=== PATIENT | female | born 1950 | race American Indian/Alaskan Native ===

== ENCOUNTER 2020-11-12 08:22 | Observation (INO) | payer MEDICARE ==
[2020-11-12] MEDS ORDERED: LIP THERAPY VASELINE TP PRN (08:30)
--- NOTE | 2020-11-12 08:44 | Emergency Department Report ---
<EUGENE LENNON - Last Filed: 11/12/20 18:47> ED CPR HPI - General Stated Complaint: CARDIAC ARREST Time Seen by Provider: 11/12/20 08:30 - Related Data Allergies Allergy/AdvReac Type Severity Reaction Status Date / Time Unable to Assess Allergy Unverified 11/12/20 09:25 ED Medical Decision Making - Lab Data Result diagrams: 11/12/20 09:19 11/12/20 09:19 ED Disposition Clinical Impression: Cardiac arrest, Metastatic cancer, Saddle pulmonary embolus Disposition: - OP ADMIT IP TO THIS HOSP Is pt being admited?: Yes Condition: Stable Time of Disposition: 18:49 <BRUNAJUAN ALBERTO - Last Filed: 11/15/20 10:14> ED CPR HPI - General Source: EMS Limitations: Other (Cardiac arrest) - History of Present Illness Initial Comments: Chief complaint: Cardiac arrest, syncope HPI: This is a 70-year-old female with history of stage IV lung cancer who presents via EMS after syncope respiratory failure. When EMS arrived, patient had agonal respirations. Patient's condition quickly progressed to cardiac arrest. Initial rhythm unknown. Patient received epinephrine 2 doses and naloxone. Per EMS, first dose of epinephrine given at 0755. ROSC was achieved. After several minutes during transportation, pulse was unobtainable. Patient received a third dose of epinephrine and epinephrine infusion. Chest compressions were being performed upon patient's arrival. Daughter provided additional information upon arrival. Her mother was diagnosed with metastatic stage IV lung cancer 2 months ago. Orthopedic surgeon diagnosed pathological vertebral fracture which prompted further evaluation. She is taking oral chemotherapy. She has "tumors all over her body" including skull. She has multiple pathologic fractures in her spine and pelvis. Patient's PCP is Dr. Adonis Hannah. Patient's oncologist is Dr. Armando Brice. She underwent genetic tumor modeling to determine care plan. She underwent echocardiogram and EKG prior to cancer treatment. EKG and echocardiogram were unremarkable according to daughter's history. Patient was in her normal state of health yesterday evening and this morning according to daughter. She did not report any symptoms to her daughter. She did not appear ill. Patient is retired. 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 Mrs. Hernandez has 5 children. She has 18 grandchildren. MD Complaint: found unresponsive, stopped breathing Place: home Bystander CPR Performed: No Shock Advised: No Initial Findings in the Field: unresponsive, agonal ROSC in the Field: Yes (then pulse subsequently unobtainable) Associated Symptoms: shortness of breath, other (Syncope) Treatments Prior to Arrival: intubation (Intubation with ETT), chest compressions, epinephrine mgs # (2 doses of epinephrine), other (1 dose of naloxone) ED Review of Systems ROS: Stated complaint: CARDIAC ARREST Other details as noted in HPI Comment: Unobtainable due to pts medical conditions (Critical condition, patient is unresponsive) ED Past Medical Hx - Past Medical History Previous Medical History?: Yes Additional medical history: stage IV lung cancer - Surgical History Past Surgical History?: Yes Additional Surgical History: Hysterectomy - Family History Family history: vascular disease (Cardiovascular disease aunt) - Social History Smoking Status: Never Smoker Substance Use Type: None ED Physical Exam - General Limitations: Altered Mental Status General appearance: other (No movement of extremities, respiratory effort observed) - Head Head exam: Present: atraumatic, normocephalic - Eye Pupils: Present: other (Sluggish pupils 6 mm slightly reactive) - ENT ENT exam: Present: mucous membranes moist - Neck Neck exam: Present: normal inspection, full ROM, other (JVD at 45 degrees) - Respiratory Respiratory exam: Present: other (Equal breath sounds, no breath sounds heard at the epigastrium). Absent: wheezes, rales, rhonchi - Cardiovascular Cardiovascular Exam: Present: regular rate, normal rhythm, normal heart sounds - GI/Abdominal GI/Abdominal exam: Present: soft. Absent: distended, tenderness, guarding, rebound - Extremities Exam Extremities exam: Present: other (No deformity no edema) - Neurological Exam Neurological exam: Present: altered, other (Unresponsive, no localization of pain) - Psychiatric Psychiatric exam: Present: other (Nonverbal no response to pain) - Skin Skin exam: Present: warm, intact, pallor ED Course Vital Signs 11/12/20 11/12/20 11/12/20 08:33 09:33 09:37 Temperature 97.8 F Pulse Rate 101 H 86 Respiratory 25 H 25 H Rate Blood Pressure 110/58 Blood Pressure 66/37 [Left] O2 Sat by Pulse 100 100 Oximetry 11/12/20 11/12/20 11/12/20 09:40 09:46 09:50 Temperature Pulse Rate 88 90 94 H Respiratory 27 H 22 26 H Rate Blood Pressure 62/37 69/42 87/52 Blood Pressure [Left] O2 Sat by Pulse 100 Oximetry 11/12/20 11/12/20 11/12/20 09:56 10:00 10:06 Temperature Pulse Rate 101 H 111 H 112 H Respiratory 25 H 21 24 Rate Blood Pressure 99/53 108/59 125/63 Blood Pressure [Left] O2 Sat by Pulse 100 100 100 Oximetry 11/12/20 11/12/20 11/12/20 10:10 10:15 10:30 Temperature Pulse Rate 113 H 109 H 100 H Respiratory 24 25 H 24 Rate Blood Pressure 108/52 103/46 87/62 Blood Pressure [Left] O2 Sat by Pulse 97 100 97 Oximetry 11/12/20 11/12/20 11/12/20 10:45 11:00 11:15 Temperature Pulse Rate 90 103 H 101 H Respiratory 25 H 27 H 26 H Rate Blood Pressure 90/30 107/44 100/53 Blood Pressure [Left] O2 Sat by Pulse 100 100 Oximetry 11/12/20 11/12/20 11/12/20 11:30 11:45 12:00 Temperature Pulse Rate 101 H 104 H 102 H Respiratory 28 H 28 H 24 Rate Blood Pressure 95/38 103/48 106/52 Blood Pressure [Left] O2 Sat by Pulse 100 100 Oximetry 11/12/20 11/12/20 11/12/20 12:15 12:30 12:46 Temperature Pulse Rate 84 89 89 Respiratory 42 H 25 H 21 Rate Blood Pressure 105/42 102/40 103/53 Blood Pressure [Left] O2 Sat by Pulse 100 100 100 Oximetry 11/12/20 11/12/20 11/12/20 12:50 13:00 13:15 Temperature Pulse Rate 83 102 H 82 Respiratory 32 H 25 H Rate Blood Pressure 76/55 97/55 Blood Pressure [Left] O2 Sat by Pulse 100 100 100 Oximetry 11/12/20 11/12/20 11/12/20 13:31 14:11 14:15 Temperature Pulse Rate 92 H 101 H 102 H Respiratory 28 H 21 28 H Rate Blood Pressure 91/68 91/68 150/86 Blood Pressure [Left] O2 Sat by Pulse 100 99 100 Oximetry 11/12/20 11/12/20 11/12/20 14:35 15:45 15:50 Temperature Pulse Rate 107 H 141 H 134 H Respiratory 25 H 33 H 28 H Rate Blood Pressure 122/66 194/110 175/98 Blood Pressure [Left] O2 Sat by Pulse 100 80 L 80 L Oximetry 11/12/20 11/12/20 11/12/20 15:55 16:00 16:05 Temperature Pulse Rate 132 H 129 H 123 H Respiratory 34 H 31 H 38 H Rate Blood Pressure 168/93 155/88 162/84 Blood Pressure [Left] O2 Sat by Pulse 79 L 77 L 73 L Oximetry 11/12/20 11/12/20 11/12/20 16:10 16:15 16:21 Temperature Pulse Rate 124 H 121 H 120 H Respiratory 38 H 32 H 29 H Rate Blood Pressure 168/81 115/77 124/73 Blood Pressure [Left] O2 Sat by Pulse 75 L 81 L 86 Oximetry 11/12/20 11/12/20 11/12/20 16:25 16:30 16:35 Temperature Pulse Rate 116 H 103 H 101 H Respiratory 37 H 36 H 30 H Rate Blood Pressure 109/61 92/37 71/42 Blood Pressure [Left] O2 Sat by Pulse 77 L 82 L Oximetry 11/12/20 11/12/20 11/12/20 16:41 16:45 16:51 Temperature Pulse Rate 102 H 88 88 Respiratory 38 H 34 H 26 H Rate Blood Pressure 67/39 61/38 65/34 Blood Pressure [Left] O2 Sat by Pulse 72 L 62 L 73 L Oximetry 11/12/20 11/12/20 11/12/20 16:55 17:01 17:05 Temperature Pulse Rate 93 H 85 85 Respiratory 27 H 26 H 25 H Rate Blood Pressure 62/38 61/38 69/37 Blood Pressure [Left] O2 Sat by Pulse 29 L 73 L 72 L Oximetry 11/12/20 11/12/20 11/12/20 17:10 17:15 17:20 Temperature Pulse Rate 90 84 88 Respiratory 26 H 28 H 25 H Rate Blood Pressure 66/36 57/36 64/37 Blood Pressure [Left] O2 Sat by Pulse 66 L 73 L 73 L Oximetry 11/12/20 11/12/20 11/12/20 17:25 17:31 17:35 Temperature Pulse Rate 84 91 H 86 Respiratory 26 H 26 H 25 H Rate Blood Pressure 68/33 52/29 63/38 Blood Pressure [Left] O2 Sat by Pulse 71 L 80 L Oximetry 11/12/20 11/12/20 11/12/20 17:41 17:45 17:50 Temperature Pulse Rate 94 H 91 H 93 H Respiratory 27 H 27 H 26 H Rate Blood Pressure 69/41 71/42 68/43 Blood Pressure [Left] O2 Sat by Pulse 73 L 72 L 77 L Oximetry 11/12/20 11/12/20 11/12/20 17:55 18:00 18:05 Temperature Pulse Rate 91 H 95 H 98 H Respiratory 27 H 27 H 27 H Rate Blood Pressure 69/36 78/41 72/46 Blood Pressure [Left] O2 Sat by Pulse 73 L 78 L Oximetry 11/12/20 11/12/20 11/12/20 18:11 18:15 18:21 Temperature Pulse Rate 100 H 101 H 100 H Respiratory 27 H 28 H 27 H Rate Blood Pressure 70/44 70/47 79/45 Blood Pressure [Left] O2 Sat by Pulse 75 L 75 L 75 L Oximetry 11/12/20 11/12/20 11/12/20 18:25 18:31 18:35 Temperature Pulse Rate 101 H 102 H 103 H Respiratory 28 H 28 H 24 Rate Blood Pressure 76/45 81/49 78/48 Blood Pressure [Left] O2 Sat by Pulse 76 L 74 L 76 L Oximetry 11/12/20 11/12/20 11/12/20 18:41 18:45 18:51 Temperature Pulse Rate 100 H 100 H 100 H Respiratory 25 H 27 H 27 H Rate Blood Pressure 75/47 70/41 78/43 Blood Pressure [Left] O2 Sat by Pulse 76 L 81 L 81 L Oximetry 11/12/20 11/12/20 11/12/20 18:55 19:01 19:05 Temperature Pulse Rate 98 H 103 H 101 H Respiratory 33 H 27 H 26 H Rate Blood Pressure 73/44 73/46 75/47 Blood Pressure [Left] O2 Sat by Pulse 86 79 L 77 L Oximetry 11/12/20 11/12/20 11/12/20 19:10 19:15 19:21 Temperature Pulse Rate 100 H 101 H 100 H Respiratory 20 26 H 26 H Rate Blood Pressure 70/45 77/45 73/44 Blood Pressure [Left] O2 Sat by Pulse 82 L 76 L 80 L Oximetry 07/11/12/20 11/12/20 19:25 19:31 19:35 Temperature Pulse Rate 100 H 99 H 99 H Respiratory 26 H 26 H 27 H Rate Blood Pressure 67/44 72/47 69/43 Blood Pressure [Left] O2 Sat by Pulse 76 L 75 L 77 L Oximetry 11/12/20 11/12/20 11/12/20 19:40 21:11 21:25 Temperature Pulse Rate 97 H Respiratory 26 H 11 L 15 Rate Blood Pressure 70/44 Blood Pressure [Left] O2 Sat by Pulse 84 Oximetry - Reevaluation(s) Reevaluation #1: 11/12/20 10:20 I spoke with family. 2 daughters came to the emergency department. Daughters informed me that mother did not discuss end-of-life since cancer diagnosis is new. I brought family to the bedside. Both daughters gave verbal informed consent for CVL insertion. Reevaluation #2: 11/12/20 11:01 I updated daughter. She stated that patient's 3 additional children are amelia irvas from [place] to be at her bedside. Reevaluation #3: 11/12/20 12:43 I reassessed patient. Patient has generalized jerking. Weak eyelid reflex. Pupils are nonreactive and equal left 4 mm, right 6 mm. Dried corneas. I have ordered Ativan and Keppra. Patient's blood pressure 52/45. I have asked nurse to start Levophed through CVL. Reevaluation #4: 11/12/20 14:58 I had extensive discussion with 3 daughters and son. Family has decided to withdraw care. We will support the patient with mechanical ventilation and vasopressor therapy until all family members arrive. Reevaluation #5: 11/12/20 15:33 All relatives have arrived. I have asked nurse to stop vasopressor therapy. I have asked respiratory therapist to remove ETT and stop mechanical ventilation. - Consultations Consultation #1: 11/12/20 15:51 I assisted respiratory therapist with removing ETT. - ABG Interpretation Ph: 7.26 PCO2: 43 PO2: 423 Interpretation: respiratory acidosis - Central Line Placement Right IJ Consent Obtained: verbal consent Time Out Performed: Yes Patient Placed on Monitor/Pulse Ox: Yes MD Prep: mask, gown, gloves, other (Maximal five-point barrier precautions cap Drape gown mask gloves) Central Line Prep: sterile drapes applied Ultrasound Used for Placement: Yes Central Line Lumen Inserted: triple Reason for Insertion: Emergency Venous Access Bloods Obtained for Lab: No Central Line Position: sutured in place with nyl Dressing Applied: Tegaderm Post Procedure X-Ray: tip of catheter in good p Patient Tolerated Procedure: well ED Medical Decision Making - Lab Data Result diagrams: 11/12/20 09:19 11/12/20 09:19 - EKG Data -: EKG Interpreted by Wi EKG shows normal: sinus rhythm, axis Rate: tachycardia - EKG Data 11/12/20 10:35 EKG obtained 829 EKG interpreted by me Sinus tachycardia rate 100 bpm normal axis normal QTC prolonged IA - Radiology Data Radiology results: report reviewed Comment(s) Study Comments [address] [address] XRay Report Signed Patient: RUDY VELAZQUEZ MR#: [id number] : 1950 Acct:[id number] Age/Sex: 70 / F ADM Date: 11/12/20 Loc: ED Attending Dr: Ordering Physician: Juan Alberto Abdullahi MD Date of Service: 11/12/20 Procedure(s): XR chest 1V ap Accession Number(s): [id number] cc: Juan Alberto Abdullahi MD Fluoro Time In Minutes: CHEST 1 VIEW 11/12/2020 10:00 AM INDICATION / CLINICAL INFORMATION: Right internal jugular vein CVL placement. COMPARISON: 11/12/2020 9:28 AM same day FINDINGS: SUPPORT DEVICES: New right IJ CVL projects over SVC. ET tube again projects in expected position HEART / MEDIASTINUM: No significant abnormality. LUNGS / PLEURA: No significant pulmonary or pleural abnormality. No pneumothorax. ADDITIONAL FINDINGS: No significant additional findings. IMPRESSION: 1. No acute findings. Signer Name: Devin Castillo MD Signed: 11/12/2020 11:11 AM Workstation Name: [id number] Transcribed By: TL Dictated By: Devin Castillo MD Electronically Authenticated By: Devin Castillo MD Signed Date/Time: 11/12/20 1111 DD/ 1110 TD/TT: [address] [address] XRay Report Signed Patient: RUDY VELAZQUEZ MR#: [id number] : 1950 Acct:[id number] Age/Sex: 70 / F ADM Date: 11/12/20 Loc: ED Attending Dr: Ordering Physician: Juan Alberto Abdullahi MD Date of Service: 11/12/20 Procedure(s): XR chest 1V ap Accession Number(s): [id number] cc: Juan Alberto Abdullahi MD Fluoro Time In Minutes: XR chest 1V ap INDICATION / CLINICAL INFORMATION: ETT placement. COMPARISON: None FINDINGS: SUPPORT DEVICES: Endotracheal tube projects in the midtrachea. HEART /PULMONARY VASCULATURE: No significant abnormality. LUNGS / PLEURA: No focal airspace consolidation or effusion. No pneumothorax. ADDITIONAL FINDINGS: No significant additional findings. IMPRESSION: Satisfactory position of endotracheal tube. No definite acute chest process. Signer Name: Paulino Burns MD Signed: 11/12/2020 9:40 AM Workstation Name: [id number] Transcribed By: JS Dictated By: PAULINO BURNS MD Electronically Authenticated By: PAULINO BURNS MD Signed Date/Time: 11/12/20939 DD/ 7 TD/TT: Other Patient ID My Comment(s) Study Comments [facility] [address] [place] [address] Cat Scan Report Signed Patient: RUDY VELAZQUEZ MR#: [id number] : 1950 Acct:[id number] Age/Sex: 70 / F ADM Date: 11/12/20 Loc: ED Attending Dr: Ordering Physician: Juan Alberto Abdullahi MD Date of Service: 11/12/20 Procedure(s): CT abdomen pelvis w con Accession Number(s): [id number] cc: Juan Alberto Abdullahi MD CTA CHEST WITH CONTRAST INDICATION : syncope shortness of breath cardiac arrest cancer OMNI 350 60ML GFR 41. TECHNIQUE: Axial imaging performed through the chest, with contrast bolus timing set to maximize opacification of the pulmonary arteries. Sagittal and coronal reformatted images. 3-plane MIP reformatted images were obtained. All CT scans at this location are performed using CT dose reduction for ALARA by means of automated exposure control. 60 mL of intravenous contrast administered. COMPARISON: AP chest performed earlier today FINDINGS: Bolus: Contrast bolus timing is adequate. PTE: A moderate to large saddle pulmonary embolus is identified which extends to the first order branches of the left lower lobe. Mediastinum: Heart and great vessels appear normal. No pathologic mediastinal adenopathy. Lungs: A large left anterior pneumothorax is identified estimated at 50%. There is minor bibasilar atelectatic changes, left greater than right. No pleural effusion, large consolidation or mass. Bones: Multiple bilateral anterior rib fractures are identified at levels 3-7 bilaterally. Expansile lytic appearing lesion is also noted in the C7 vertebral body and posterior elements on the left side. 1.4 cm sclerotic lesion is identified in the anterior T5 and T6 vertebral bodies. Lytic lesions are identified in T11 and T12. There is diffuse sclerosis in the lower sternum also concerning for a bony lesion. IMPRESSION: Positive for subtle pulmonary embolus. Large left pneumothorax as described. Multiple bilateral anterior rib fractures which may be secondary to CPR. Multiple lower cervical and thoracic bony lesions consistent with metastatic disease. CRITICAL RESULT: Time of Discovery (SUPERINTENDENT FACTORY/CDT): 1342 hours Time of Communication (SUPERINTENDENT FACTORY/CDT): 1348 hours Licensed Practitioner Receiving Report: ALBA Fitzgerald Read-Back Performed: Yes. CT ABDOMEN AND PELVIS WITH CONTRAST HISTORY: syncope shortness of breath cardiac arrest cancer OMNI 350 60ML GFR 41 COMPARISON: None. TECHNIQUE: Axial CT images were obtained through the abdomen and pelvis after 60 cc of IV contrast. Sagittal and coronal reformatted images. All CT scans at this location are performed using CT dose reduction for ALARA by means of automated exposure control. FINDINGS: CT ABDOMEN: Liver: There are multiple hypodense lesions near the liver hilum extending into the left hepatic lobe which could represent small masses or fluid collections. The remainder of the liver is unremarkable. Biliary: No significant abnormality. Spleen: No significant abnormality. Unenlarged. Pancreas: No significant abnormality. Adrenals: No significant abnormality. Kidneys: No significant abnormality. Lymphatics: No lymphadenopathy. Vasculature: No significant abnormality. Bowel/Peritoneum: No evidence for bowel obstruction or focal inflammation. A rectal tube is in position. There is no obvious GI mass. There is small to medium perihepatic, perisplenic and pelvic ascites. No encapsulated fluid collection. CT PELVIS: : Hysterectomy changes. The bladder is decompressed with a Powell catheter. Osseous Structures: Multiple lytic and blastic bony lesions throughout the lumbar spine and sacrum. Lytic bony lesion is also identified in the right superior pelvic ramus with associated subacute pathologic fracture. Subacute healing fracture is also noted in the right inferior pubic ramus. A subacute appearing compression fracture is also identified at L2 which is likely pathologic in nature. Additional Findings: None IMPRESSION: Multiple small liver hypodensities as described concerning for small masses or fluid collection. Liver abscess is difficult to exclude. Small to medium ascites. Multiple blastic and lytic bony lesions in the lumbar spine and pelvis as described. Subacute fractures of the right superior and inferior pelvic rami. Compression deformity of L2. Signer Name: Cirlio Hein Jr, MD Signed: 11/12/2020 2:55 PM Workstation Name: [id number] Transcribed By: TTR Dictated By: CIRILO HEIN JR, MD Electronically Authenticated By: CIRILO HEIN JR, MD Signed Date/Time: 11/12/20 1455 DD/DT: 11/12/ [facility] [address] [place] [address] Cat Scan Report Signed Patient: RUDY VELAZQUEZ MR#: [id number] : 1950 Acct:[id number] Age/Sex: 70 / F ADM Date: 11/12/20 Loc: ED Attending Dr: Ordering Physician: Juan Alberto Abdullahi MD Date of Service: 11/12/20 Procedure(s): CT head/brain wo con Accession Number(s): [id number] cc: Juan Alberto Abdullahi MD CT head/brain wo con INDICATION: syncope lung cancer cardia arrest Best images possible . TECHNIQUE: Routine CT head. All CT scans at this location are performed using CT dose reduction for ALARA by means of automated exposure control. COMPARISON: None. FINDINGS: Intracranial: Quiñones-white matter differentiation is maintained. No intracranial hemorrhage. No extra axial collection. No hydrocephalus. No herniation. Sinuses: Paranasal sinuses and mastoid air cells are essentially clear. Orbits: Globes are intact. Calvarium: There are several scattered lesions seen throughout the calvarium. Largest lesion is in the left parietal bone measuring up to 2.7 cm as seen on axial image 24 of series 3. This lesion and a left occipital bone lesion on image 11 of series 3 demonstrate breakthrough of the internal cortex. No mass effect on the underlying brain IMPRESSION: 1. Calvarial osseous metastasis. No parenchymal metastasis identified. Signer Name: Elmer Roca MD Signed: 11/12/2020 2:37 PM Workstation Name: [id number] Transcribed By: ALVIN Dictated By: Elmer Roca MD Electronically Authenticated By: Elmer Roca MD Signed Date/Time: 11/12/201436 DD/ 27 TD/TT: - Medical Decision Making This is a 70-year-old female recently diagnosed with metastatic lung cancer and pathologic fractures of the spine and pelvis. She presents status post syncope respiratory arrest. She experienced cardiac arrest resuscitated here in emergency department with ROSC achieved. Patient is currently showing respiratory effort breathing over the vent. During CVL insertion, I observe movement of the right upper extremity Work-up remarkable for leukocytosis, anemia, ABG revealed metabolic acidosis. Equivocal troponin value. Differential diagnosis includes pulmonary embolism, arrhythmia, ID, heart failure CT angiogram chest confirmed suspicion of saddle pulmonary embolus Patient also has pneumothorax and multiple rib fractures which is expected with history of chest compressions. Without sedation patient has been unresponsive, fixed unequal pupils. No eyelid reflex at this time. No response to painful stimuli. GCS 3. With brain evident, family members asked to withdraw care once all relatives arrive to the emergency department. Critical Care Time: Yes Critical care time in (mins) excluding proc time.: 70 Critical care attestation.: If time is entered above; I have spent that time in minutes in the direct care of this critically ill patient, excluding procedure time. 70 minutes of critical care time excluding procedures were used in the care of the patient. After hearing EMS call, I spoke discussed plan of care with respiratory therapist and charge nurse prior to patient's arrival. I came immediately to the bedside upon patient's arrival. I obtained history from EMS at the bedside. I discussed treatment plan with the nursing team members. I reviewed electronic record. I kept the family members informed. Spoke with family extensively on several encounters. patient required multiple interventions and reassessments. ED Disposition Is pt being admited?: No Does the pt Need Aspirin: No
[2020-11-12 09:30] LABS: Basophils % (Auto) 0.2 % (0.0-1.8); Eosinophils # (Auto) 0.2 K/mm3 (0.0-0.4); Hemoglobin 8.4 gm/dl (10.1-14.3); Lymphocytes # (Auto) 4.5 K/mm3 (1.2-5.4); Lymphocytes % (Auto) 28.5 % (13.4-35.0); Mean Corpuscular HGB Conc 30 % (30-34); Mean Corpuscular Volume 90 fl (79-97); Monocytes # (Auto) 0.4 K/mm3 (0.0-0.8); Monocytes % (Auto) 2.5 % (0.0-7.3); Platelet Count 240 K/mm3 (140-440); Red Blood Count 3.12 M/mm3 (3.65-5.03); Red Cell Distribution Width 17.1 % (13.2-15.2)
--- NOTE | 2020-11-12 09:44 | XRay Report ---
XR chest 1V ap INDICATION / CLINICAL INFORMATION: ETT placement. COMPARISON: None FINDINGS: SUPPORT DEVICES: Endotracheal tube projects in the midtrachea. HEART /PULMONARY VASCULATURE: No significant abnormality. LUNGS / PLEURA: No focal airspace consolidation or effusion. No pneumothorax. ADDITIONAL FINDINGS: No significant additional findings. IMPRESSION: Satisfactory position of endotracheal tube. No definite acute chest process. Signer Name: Jorge Luis Burns MD Signed: 11/12/2020 9:40 AM Workstation Name: [id number]
[2020-11-12 09:49] LABS: Calcium 9.8 mg/dL (8.4-10.2)
[2020-11-12] MEDS ORDERED: MINERAL OIL/PETROLATUM, WHITE OPHTH OINT 3.5 GM OU PRN (10:00)
[2020-11-12] MEDS ORDERED: DOPamine/D5W 800 MG/250 ML 800 MG/250 ML BAG IV ONE (10:18)
[2020-11-12 10:24] LABS: Chol/HDL Ratio 2.09 %
[2020-11-12] MEDS ORDERED: NORepinephrine/NS 4 MG-250 ML 4 MG/250 ML BAG IV SCH (11:00)
--- NOTE | 2020-11-12 11:16 | XRay Report ---
CHEST 1 VIEW 11/12/2020 10:00 AM INDICATION / CLINICAL INFORMATION: Right internal jugular vein CVL placement. COMPARISON: 11/12/2020 9:28 AM same day FINDINGS: SUPPORT DEVICES: New right IJ CVL projects over SVC. ET tube again projects in expected position HEART / MEDIASTINUM: No significant abnormality. LUNGS / PLEURA: No significant pulmonary or pleural abnormality. No pneumothorax. ADDITIONAL FINDINGS: No significant additional findings. IMPRESSION: 1. No acute findings. Signer Name: Devin Csatillo MD Signed: 11/12/2020 11:11 AM Workstation Name: [id number]
[2020-11-12] MEDS ORDERED: LORazepam 2 MG/ML VIAL IV ONE ×2 (12:43→16:11)
[2020-11-12] MEDS ORDERED: levETIRAcetam 1000 MG/NS 0.75% 1,000 MG/100 ML BAG IV ONE (12:43)
--- NOTE | 2020-11-12 14:41 | Cat Scan Report ---
CT head/brain wo con INDICATION: syncope lung cancer cardia arrest Best images possible . TECHNIQUE: Routine CT head. All CT scans at this location are performed using CT dose reduction for A TATE by means of automated exposure control. COMPARISON: None. FINDINGS: Intracranial: Quiñones-white matter differentiation is maintained. No intracranial hemorrhage. No extra a xial collection. No hydrocephalus. No herniation. Sinuses: Paranasal sinuses and mastoid air cells are essentially clear. Orbits: Globes are intact. Calvarium: There are several scattered lesions seen throughout the calvarium. Largest lesion is in th e left parietal bone measuring up to 2.7 cm as seen on axial image 24 of series 3. This lesion and a left occipital bone lesion on image 11 of series 3 demonstrate breakthrough of the internal cortex. N o mass effect on the underlying brain IMPRESSION: 1. Calvarial osseous metastasis. No parenchymal metastasis identified. Signer Name: Elmer Roca MD Signed: 11/12/2020 2:37 PM Workstation Name: [id number]
--- NOTE | 2020-11-12 14:59 | Cat Scan Report ---
CTA CHEST WITH CONTRAST INDICATION : syncope shortness of breath cardiac arrest cancer OMNI 350 60ML GFR 41. TECHNIQUE: Axial imaging performed through the chest, with contrast bolus timing set to maximize opa cification of the pulmonary arteries. Sagittal and coronal reformatted images. 3-plane MIP reformatte d images were obtained. All CT scans at this location are performed using CT dose reduction for ALAR A by means of automated exposure control. 60 mL of intravenous contrast administered. COMPARISON: AP chest performed earlier today FINDINGS: Bolus: Contrast bolus timing is adequate. PTE: A moderate to large saddle pulmonary embolus is identified which extends to the first order bra nches of the left lower lobe. Mediastinum: Heart and great vessels appear normal. No pathologic mediastinal adenopathy. Lungs: A large left anterior pneumothorax is identified estimated at 50%. There is minor bibasilar a telectatic changes, left greater than right. No pleural effusion, large consolidation or mass. Bones: Multiple bilateral anterior rib fractures are identified at levels 3-7 bilaterally. Expansile lytic appearing lesion is also noted in the C7 vertebral body and posterior elements on the left theo e. 1.4 cm sclerotic lesion is identified in the anterior T5 and T6 vertebral bodies. Lytic lesions ar e identified in T11 and T12. There is diffuse sclerosis in the lower sternum also concerning for a [place] lesion. IMPRESSION: Positive for subtle pulmonary embolus. Large left pneumothorax as described. Multiple bilateral anterior rib fractures which may be secondary to CPR. Multiple lower cervical and thoracic bony lesions consistent with metastatic disease. CRITICAL RESULT: Time of Discovery (PATIENT ACCOUNT LIAISON/CDT): 1342 hours Time of Communication (PATIENT ACCOUNT LIAISON/CDT): 1348 hours Licensed Practitioner Receiving Report: ALBA Fitzgerald Read-Back Performed: Yes. CT ABDOMEN AND PELVIS WITH CONTRAST HISTORY: syncope shortness of breath cardiac arrest cancer OMNI 350 60ML GFR 41 COMPARISON: None. TECHNIQUE: Axial CT images were obtained through the abdomen and pelvis after 60 cc of IV contrast. S agittal and coronal reformatted images. All CT scans at this location are performed using CT dose red uction for ALARA by means of automated exposure control. FINDINGS: CT ABDOMEN: Liver: There are multiple hypodense lesions near the liver hilum extending into the left hepatic lobe which could represent small masses or fluid collections. The remainder of the liver is unremarkable. Biliary: No significant abnormality. Spleen: No significant abnormality. Unenlarged. Pancreas: No significant abnormality. Adrenals: No significant abnormality. Kidneys: No significant abnormality. Lymphatics: No lymphadenopathy. Vasculature: No significant abnormality. Bowel/Peritoneum: No evidence for bowel obstruction or focal inflammation. A rectal tube is in positi on. There is no obvious GI mass. There is small to medium perihepatic, perisplenic and pelvic ascites . No encapsulated fluid collection. CT PELVIS: : Hysterectomy changes. The bladder is decompressed with a Powell catheter. Osseous Structures: Multiple lytic and blastic bony lesions throughout the lumbar spine and sacrum. L ytic bony lesion is also identified in the right superior pelvic ramus with associated subacute patho logic fracture. Subacute healing fracture is also noted in the right inferior pubic ramus. A subacute appearing compression fracture is also identified at L2 which is likely pathologic in nature. Additional Findings: None IMPRESSION: Multiple small liver hypodensities as described concerning for small masses or fluid collection. Live r abscess is difficult to exclude. Small to medium ascites. Multiple blastic and lytic bony lesions in the lumbar spine and pelvis as described. Subacute fractur es of the right superior and inferior pelvic rami. Compression deformity of L2. Signer Name: Cirilo Hein Jr, MD Signed: 11/12/2020 2:55 PM Workstation Name: [id number]
[2020-11-12] MEDS ORDERED: MORPHINE 4 MG/1 ML INJ IV ONE (16:11)
--- NOTE | 2020-11-12 21:58 | Event Note ---
Date: 11/12/20 Called to bedside by nurse. Patient has no pulse present. No spontaneous breaths present. Patient is DNR status. Time of 21:31. Family present at bedside.
[2020-11-13] MEDS ORDERED: SODIUM CHLORIDE 0.9% 500 ML IVPB ONE (00:24)
[2020-11-13] MEDS ORDERED: SODIUM CHLORIDE 0.9% 1000 ML IV SOLN ONE (00:24)
[2020-11-13 06:50] VITALS: BP 70/44
--- NOTE | 2020-11-13 10:17 | Electrocardiograph Report ---
[facility] Test Date: 2020-11-12 Test Time: 08:29:15 Pat Name: RUDY VELAZQUEZ Department: Room: [facility] Gender: F Glass Technologist: RICHARD : 1950 Requested By: UJAN ALBERTO MCFARLAND Order Number: [id number] Reading MD: Higinio Boyd Measurements Intervals Williams Rate: 105 P: 58 UT: 210 QRS: 59 QRSD: 100 T: -89 QT: 323 QTc: 429 Interpretive Statements Sinus tachycardia Borderline prolonged UT interval Low voltage, extremity leads No previous ECG available for comparison Electronically Signed On 11-13-2020 10:16:28 EDT by Higinio Boyd
== END 2020-11-13 01:56 ==
LOC: ED 08:22 → 4A 18:49
PROVIDERS: ADMIT Internal Medicine; ATTEND Internal Medicine
DX: I46.9 Cardiac arrest, cause unspecified (principal); I26.92 Saddle embolus of pulmonary artery without acute cor pulmonale; C79.9 Secondary malignant neoplasm of unspecified site; R55 Syncope and collapse; R10.9 Unspecified abdominal pain; R06.02 Shortness of breath
CPT/HCPCS: 31500; 36415; 36556; 70450; 71045; 71275; 74177; 80048; 80061; 82805; 82962; 83880; 84484; 85025; 87070; 87205; 93005; 94002; 96374; 96375; 96376; 99291; G0378; J1953; J2060; J2270; Q9967; J7030; J7040